=== PATIENT | female | born 1960 | race African-American/Black ===

== ENCOUNTER 2017-03-08 22:21 | Emergency (ER) | payer MEDICAID ==
[~2017-03-08] VITALS: Ht 162.6 cm; Wt 180.0 kg
[2017-03-09 02:45] VITALS: BP 158/76
== END 2017-03-09 04:30 | disposition home or self-care (01) ==
LOC: ER 22:34
DX: E11.649 Type 2 diabetes mellitus with hypoglycemia without coma (principal); I10 Essential (primary) hypertension; R53.1 Weakness; Z79.4 Long term (current) use of insulin
CPT/HCPCS: 36415; 82947; 82962; 99284; Z7610

== ENCOUNTER 2020-08-08 20:11 | Emergency (ER) | payer MEDICAID ==
[~2020-08-08] VITALS: Ht 167.6 cm; Wt 69.0 kg
[2020-08-09] MEDS ORDERED: TOPUD MT (01:25)
[2020-08-09 03:27] VITALS: BP 135/90
== END 2020-08-09 03:33 ==
LOC: ER 20:11
DX: Z04.3 Encounter for examination and observation following other accident (principal); E11.9 Type 2 diabetes mellitus without complications; I10 Essential (primary) hypertension; D64.9 Anemia, unspecified; W18.2XXA Fall in (into) shower or empty bathtub, initial encounter; Y93.89 Activity, other specified; Y92.9 Unspecified place or not applicable
CPT/HCPCS: 72100; 72131; 72170; 93005; 99285

== ENCOUNTER 2021-03-06 13:51 | Inpatient (IN) | payer MEDICAID ==
[~2021-03-06] VITALS: Ht 167.6 cm; Wt 55.3 kg
[~2021-03-06 13:51] MED LIST: TOPUD MT
[2021-03-06] MEDS ORDERED: IOHEXOL-350 100 ML BOTTLE ONE (15:08)
[2021-03-06 15:39] LABS: HEMATOCRIT. 26.1 % (36.0-48.0); HEMOGLOBIN. 8.6 g/dL (12.0-16.0); MEAN CORPUSCULAR VOLUME 85.1 fL (81.0-99.0); MEAN PLATELET VOLUME 8.6 fl (7.4-10.4); PLATELET 307 x1000/uL (130-400); RED BLOOD CELL COUNT 3.07 mill/uL (4.2-5.4); RED CELL DISTRIBUTION WIDTH 13.9 % (11.6-14.6)
[2021-03-06 15:45] LABS: CHLORIDE 112 mEq/L (98-107)
[2021-03-06 15:49] LABS: ETHANOL BLOOD < 10 mg/dL; INR 0.9; PROTHROMBIN TIME 10.2 sec (9.6-11.0)
[2021-03-06] MEDS ORDERED: ONDANSETRON HCL 4MG/2ML INJ IV PRN (16:45)
[2021-03-06] MEDS ORDERED: ACETAMINOPHEN 650MG SUPP PR PRN (16:45)
[2021-03-06] MEDS ORDERED: TRAMADOL 50MG TABLET PO PRN (16:45)
[2021-03-06] MEDS ORDERED: DEXTROSE 50% WATER 50ML SYRINGE IV PRN (16:45)
[2021-03-06] MEDS ORDERED: NALOXONE HCL 0.4MG/ML VIAL IV PRN (17:00)
[2021-03-06] MEDS ORDERED: LABETALOL HCL VIAL 20 MG/4 ML VIAL IV PRN (17:00)
[2021-03-06] MEDS: BLOOD SUGAR DIAGNOSTIC STRIP TEST SCH ×2 (17:06→22:35)
[2021-03-06 17:44] LABS: FOLIC ACID (FOLATE) SERUM > 20.00 ng/mL (>5.38)
[2021-03-06 17:49] LABS: VITAMIN B12 SERUM 327 pg/mL (211-911)
[2021-03-06 21:04] LABS: PLATELET ESTIMATE NORMAL
[2021-03-06] MEDS: INSULIN LISPRO 100 UNITS/ML SUBCUT SCH ×2 (22:36→22:52)
[2021-03-06] MEDS: ATORVASTATIN CALCIUM 40MG TABLET PO SCH (22:52)
[2021-03-07] MEDS ORDERED: CLONIDINE 0.1MG TABLET PO NR (04:15)
[2021-03-07] MEDS: BLOOD SUGAR DIAGNOSTIC STRIP TEST SCH ×4 (06:30→20:58)
[2021-03-07] MEDS: INSULIN LISPRO 100 UNITS/ML SUBCUT SCH ×4 (07:15→20:58)
[2021-03-07] MEDS: ASPIRIN 81MG EC TABLET PO SCH (09:41)
[2021-03-07 11:16] VITALS: BP 159/89
[2021-03-07 12:00] VITALS: BP 159/63
[2021-03-07 14:19] LABS: BASOPHILS % 0.8 % (0.0-2.0); EOSINOPHILS % 1.8 % (0.0-5.0); HEMATOCRIT. 23.5 % (36.0-48.0); HEMOGLOBIN. 7.8 g/dL (12.0-16.0); LYMPHOCYTES % 19.3 % (20.0-50.0); MEAN CORPUSCULAR HEMOGLOBIN 28.4 pg (28.0-32.0); MEAN CORPUSCULAR VOLUME 85.4 fL (81.0-99.0); MEAN PLATELET VOLUME 9.6 fl (7.4-10.4); MONOCYTES % 6.7 % (2.0-8.0); NEUTROPHILS % 71.4 % (40.0-76.0); PLATELET 267 x1000/uL (130-400); RED BLOOD CELL COUNT 2.76 mill/uL (4.2-5.4); RED CELL DISTRIBUTION WIDTH 13.6 % (11.6-14.6)
[2021-03-07 16:00] VITALS: BP 157/57
[2021-03-07] MEDS ORDERED: GLIP10TA10 PO (18:44)
[2021-03-07] MEDS ORDERED: LISI10TA26 PO (18:44)
[2021-03-07] MEDS ORDERED: METF-873 PO (18:44)
[2021-03-07] MEDS ORDERED: AMLO10TA80 PO (18:44)
[2021-03-07] MEDS ORDERED: FOLI0.4T6 MT (18:44)
[2021-03-07] MEDS ORDERED: POTASSIUM CHLORIDE 20MEQ TABLET SR PO NR (19:30)
[2021-03-07 20:00] VITALS: BP 141/65
[2021-03-07] MEDS: ATORVASTATIN CALCIUM 40MG TABLET PO SCH (20:58)
[2021-03-08 04:00] VITALS: BP 172/64
[2021-03-08] MEDS: BLOOD SUGAR DIAGNOSTIC STRIP TEST SCH ×4 (06:19→21:00)
[2021-03-08] MEDS: INSULIN LISPRO 100 UNITS/ML SUBCUT SCH ×4 (06:20→21:00)
[2021-03-08 08:00] VITALS: BP 180/66
[2021-03-08] MEDS: CYANOCOBALAMIN 1000MCG/ML VIAL IM SCH (09:00)
[2021-03-08] MEDS: ASPIRIN 81MG EC TABLET PO SCH (09:00)
[2021-03-08 09:39] LABS: *AMPHETAMINES SCREEN URINE NEGATIVE (NEGATIVE); *BARBITURATES SCREEN URINE NEGATIVE (NEGATIVE); *BENZODIAZEPINES SCREEN URINE NEGATIVE (NEGATIVE); *COCAINE SCREEN URINE NEGATIVE (NEGATIVE); CANNABINOID URINE SCREEN NEGATIVE (NEGATIVE); OPIATES URINE SCREEN NEGATIVE (NEGATIVE)
[2021-03-08 09:40] LABS: METHADONE URINE SCREEN NEGATIVE (NEGATIVE); PHENCYCLIDINE URINE SCREEN NEGATIVE (NEGATIVE)
[2021-03-08] MEDS ORDERED: CLONIDINE 0.1MG TABLET PO NR (09:45)
[2021-03-08] MEDS: AMLODIPINE 10MG TABLET PO SCH (10:45)
[2021-03-08 11:23] LABS: BASOPHILS % 0.5 % (0.0-2.0); EOSINOPHILS % 2.7 % (0.0-5.0); HEMATOCRIT. 23.1 % (36.0-48.0); HEMOGLOBIN. 7.8 g/dL (12.0-16.0); LYMPHOCYTES % 28.7 % (20.0-50.0); MEAN CORPUSCULAR HEMOGLOBIN 28.6 pg (28.0-32.0); MEAN CORPUSCULAR VOLUME 85.2 fL (81.0-99.0); MEAN PLATELET VOLUME 10.1 fl (7.4-10.4); MONOCYTES % 6.9 % (2.0-8.0); NEUTROPHILS % 61.2 % (40.0-76.0); PLATELET 259 x1000/uL (130-400); RED BLOOD CELL COUNT 2.71 mill/uL (4.2-5.4); RED CELL DISTRIBUTION WIDTH 13.9 % (11.6-14.6)
[2021-03-08 12:00] VITALS: BP 180/66
[2021-03-08] MEDS: CLONIDINE 0.1MG TABLET PO PRN (15:14)
[2021-03-08 15:37] VITALS: BP 193/81
[2021-03-08 20:00] VITALS: BP 186/75
[2021-03-08] MEDS ORDERED: EPOETIN ALFA-EPBX 10,000 UNIT/ML VIAL SUBCUT NR (21:00)
[2021-03-08] MEDS: ATORVASTATIN CALCIUM 40MG TABLET PO SCH (22:56)
[2021-03-08] MEDS: HYDRALAZINE HCL 10MG TABLET PO SCH (23:10)
[2021-03-09] VITALS: BP 202/81
[2021-03-09] MEDS: CLONIDINE 0.1MG TABLET PO PRN ×2 (01:22→21:11)
[2021-03-09 04:00] VITALS: BP_SYST 142; BP_SYST 190; BP_DIAS 81; BP_DIAS 91
[2021-03-09] MEDS: BLOOD SUGAR DIAGNOSTIC STRIP TEST SCH ×4 (07:14→22:11)
[2021-03-09] MEDS: INSULIN LISPRO 100 UNITS/ML SUBCUT SCH ×4 (07:15→22:11)
[2021-03-09] MEDS: HYDRALAZINE HCL 10MG TABLET PO SCH ×2 (07:15→13:05)
[2021-03-09 07:22] LABS: BASOPHILS % 0.5 % (0.0-2.0); EOSINOPHILS % 2.7 % (0.0-5.0); HEMOGLOBIN. 7.7 g/dL (12.0-16.0); LYMPHOCYTES % 28.4 % (20.0-50.0); MEAN CORPUSCULAR HEMOGLOBIN 28.6 pg (28.0-32.0); MEAN CORPUSCULAR VOLUME 85.8 fL (81.0-99.0); MEAN PLATELET VOLUME 9.3 fl (7.4-10.4); MONOCYTES % 7.4 % (2.0-8.0); PLATELET 231 x1000/uL (130-400); RED BLOOD CELL COUNT 2.68 mill/uL (4.2-5.4); RED CELL DISTRIBUTION WIDTH 13.7 % (11.6-14.6)
[2021-03-09 08:00] VITALS: BP 175/75
[2021-03-09 08:07] LABS: PHOSPHORUS 3.9 mg/dL (2.5-4.9)
[2021-03-09] MEDS: CYANOCOBALAMIN 1000MCG/ML VIAL IM SCH (09:16)
[2021-03-09] MEDS: AMLODIPINE 10MG TABLET PO SCH (09:16)
[2021-03-09] MEDS: ASPIRIN 81MG EC TABLET PO SCH (09:16)
[2021-03-09 12:00] VITALS: BP 149/72
[2021-03-09] MEDS: SODIUM CHLORIDE 0.45% 1,000 ML IV SCH (14:36)
[2021-03-09 16:00] VITALS: BP 145/69
[2021-03-09 20:00] VITALS: BP 180/59
[2021-03-09] MEDS: ATORVASTATIN CALCIUM 40MG TABLET PO SCH (21:10)
[2021-03-09] MEDS: HYDRALAZINE HCL 25MG TABLET PO SCH (22:15)
[2021-03-10] VITALS: BP 160/50
[2021-03-10 04:00] VITALS: BP 190/69
[2021-03-10] MEDS: CLONIDINE 0.1MG TABLET PO PRN ×2 (04:31→17:50)
[2021-03-10] MEDS: HYDRALAZINE HCL 25MG TABLET PO SCH (06:35)
[2021-03-10] MEDS: BLOOD SUGAR DIAGNOSTIC STRIP TEST SCH ×4 (06:45→21:00)
[2021-03-10] MEDS: INSULIN LISPRO 100 UNITS/ML SUBCUT SCH ×4 (07:15→21:00)
[2021-03-10 08:00] VITALS: BP 161/62
[2021-03-10 08:47] LABS: CLARITY URINE CLEAR (CLEAR); COLOR URINE YELLOW (YELLOW); KETONES URINE NEGATIVE (NEGATIVE); LEUKOCYTE ESTERASE URINE TRACE (NEGATIVE); NITRITE URINE NEGATIVE (NEGATIVE); OCCULT BLOOD URINE TRACE (NEGATIVE); PH URINE 6.5 (4.5-8.0); PROTEIN URINE 3+ (NEGATIVE); SPECIFIC GRAVITY URINE 1.017 (1.005-1.030); UROBILINOGEN URINE 0.2 E.U./dL (0.2-1.0)
[2021-03-10] MEDS: CYANOCOBALAMIN 1000MCG/ML VIAL IM SCH (09:39)
[2021-03-10] MEDS: NIFEDIPINE XL 30MG TAB PO SCH ×2 (09:39→20:22)
[2021-03-10] MEDS: ASPIRIN 81MG EC TABLET PO SCH (09:40)
[2021-03-10 12:00] VITALS: BP 148/71
[2021-03-10] MEDS: HYDRALAZINE HCL 50MG TABLET PO SCH ×2 (13:45→22:16)
[2021-03-10 16:00] VITALS: BP 182/65
[2021-03-10 16:22] LABS: BASOPHILS % 0.5 % (0.0-2.0); EOSINOPHILS % 3.4 % (0.0-5.0); HEMATOCRIT. 24.6 % (36.0-48.0); LYMPHOCYTES % 22.7 % (20.0-50.0); MEAN CORPUSCULAR HEMOGLOBIN 27.8 pg (28.0-32.0); MEAN PLATELET VOLUME 9.5 fl (7.4-10.4); MONOCYTES % 5.1 % (2.0-8.0); NEUTROPHILS % 68.3 % (40.0-76.0); PLATELET 228 x1000/uL (130-400); RED BLOOD CELL COUNT 2.89 mill/uL (4.2-5.4); RED CELL DISTRIBUTION WIDTH 13.5 % (11.6-14.6)
[2021-03-10 16:37] LABS: PHOSPHORUS 3.8 mg/dL (2.5-4.9)
[2021-03-10] MEDS: SODIUM CHLORIDE 0.45% 1,000 ML IV SCH (17:04)
[2021-03-10 20:00] VITALS: BP 171/67
[2021-03-10] MEDS: ATORVASTATIN CALCIUM 40MG TABLET PO SCH (20:21)
[2021-03-11] VITALS: BP 177/66
[2021-03-11] MEDS: CLONIDINE 0.1MG TABLET PO PRN ×2 (01:54→18:15)
[2021-03-11 04:00] VITALS: BP 160/57
[2021-03-11] MEDS: HYDRALAZINE HCL 50MG TABLET PO SCH (06:05)
[2021-03-11] MEDS: BLOOD SUGAR DIAGNOSTIC STRIP TEST SCH ×4 (06:05→21:43)
[2021-03-11] MEDS: INSULIN LISPRO 100 UNITS/ML SUBCUT SCH ×4 (06:08→21:00)
[2021-03-11] MEDS: SODIUM CHLORIDE 0.45% 1,000 ML IV SCH (06:12)
[2021-03-11 06:24] LABS: BASOPHILS % 0.5 % (0.0-2.0); EOSINOPHILS % 3.6 % (0.0-5.0); HEMATOCRIT. 24.4 % (36.0-48.0); HEMOGLOBIN. 8.2 g/dL (12.0-16.0); LYMPHOCYTES % 30.9 % (20.0-50.0); MEAN CORPUSCULAR HEMOGLOBIN 28.8 pg (28.0-32.0); MEAN CORPUSCULAR VOLUME 85.7 fL (81.0-99.0); MEAN PLATELET VOLUME 9.7 fl (7.4-10.4); MONOCYTES % 6.3 % (2.0-8.0); NEUTROPHILS % 58.7 % (40.0-76.0); PLATELET 228 x1000/uL (130-400); RED BLOOD CELL COUNT 2.84 mill/uL (4.2-5.4); RED CELL DISTRIBUTION WIDTH 13.5 % (11.6-14.6)
[2021-03-11 06:42] LABS: PHOSPHORUS 3.6 mg/dL (2.5-4.9)
[2021-03-11 07:53] VITALS: BP 161/57
[2021-03-11] MEDS: NIFEDIPINE XL 30MG TAB PO SCH ×2 (09:00→21:19)
[2021-03-11] MEDS: CYANOCOBALAMIN 1000MCG/ML VIAL IM SCH (09:09)
[2021-03-11] MEDS: ASPIRIN 81MG EC TABLET PO SCH (09:10)
[2021-03-11 12:00] VITALS: BP 163/68
[2021-03-11] MEDS: HYDRALAZINE HCL 100MG TABLET PO SCH ×2 (13:49→21:18)
[2021-03-11 16:00] VITALS: BP 184/65
[2021-03-11 20:00] VITALS: BP 179/65
[2021-03-11] MEDS ORDERED: POTASSIUM CHLORIDE 10MEQ TABLET SR PO NR (20:00)
[2021-03-11] MEDS ORDERED: TRAZODONE HCL 50MG TABLET PO PRN (20:00)
[2021-03-11] MEDS: ATORVASTATIN CALCIUM 40MG TABLET PO SCH (21:18)
[2021-03-12] VITALS: BP 168/72
[2021-03-12 04:00] VITALS: BP 165/60
[2021-03-12] MEDS: BLOOD SUGAR DIAGNOSTIC STRIP TEST SCH ×4 (05:47→21:31)
[2021-03-12] MEDS: INSULIN LISPRO 100 UNITS/ML SUBCUT SCH ×4 (05:47→21:34)
[2021-03-12] MEDS: HYDRALAZINE HCL 100MG TABLET PO SCH ×3 (05:47→21:28)
[2021-03-12 07:14] LABS: BASOPHILS % 0.4 % (0.0-2.0); EOSINOPHILS % 3.1 % (0.0-5.0); HEMATOCRIT. 24.1 % (36.0-48.0); MEAN CORPUSCULAR HEMOGLOBIN 28.3 pg (28.0-32.0); MEAN CORPUSCULAR VOLUME 85.1 fL (81.0-99.0); MEAN PLATELET VOLUME 9.5 fl (7.4-10.4); MONOCYTES % 6.9 % (2.0-8.0); NEUTROPHILS % 61.6 % (40.0-76.0); PLATELET 245 x1000/uL (130-400); RED BLOOD CELL COUNT 2.84 mill/uL (4.2-5.4); RED CELL DISTRIBUTION WIDTH 13.6 % (11.6-14.6)
[2021-03-12 08:00] VITALS: BP 117/63
[2021-03-12 09:09] LABS: PHOSPHORUS 3.9 mg/dL (2.5-4.9)
[2021-03-12] MEDS ORDERED: NIFEDIPINE XL 60MG TAB PO SCH (10:00)
[2021-03-12] MEDS ORDERED: POTASSIUM CHLORIDE 20MEQ TABLET SR PO NR (10:15)
[2021-03-12] MEDS: CYANOCOBALAMIN 1000MCG/ML VIAL IM SCH (10:30)
[2021-03-12] MEDS: ASPIRIN 81MG EC TABLET PO SCH (10:30)
[2021-03-12 12:00] VITALS: BP 173/64
[2021-03-12 16:00] VITALS: BP 167/58
[2021-03-12 20:00] VITALS: BP 145/56
[2021-03-12] MEDS: ATORVASTATIN CALCIUM 40MG TABLET PO SCH (21:28)
[2021-03-13] VITALS: BP 144/77
[2021-03-13 04:00] VITALS: BP 132/78
[2021-03-13] MEDS: HYDRALAZINE HCL 100MG TABLET PO SCH ×3 (06:31→19:52)
[2021-03-13] MEDS: BLOOD SUGAR DIAGNOSTIC STRIP TEST SCH ×4 (06:31→21:41)
[2021-03-13] MEDS: INSULIN LISPRO 100 UNITS/ML SUBCUT SCH ×4 (06:34→21:00)
[2021-03-13 07:12] LABS: BASOPHILS % 0.3 % (0.0-2.0); EOSINOPHILS % 2.5 % (0.0-5.0); HEMATOCRIT. 24.1 % (36.0-48.0); LYMPHOCYTES % 26.8 % (20.0-50.0); MEAN CORPUSCULAR HEMOGLOBIN 28.3 pg (28.0-32.0); MEAN CORPUSCULAR VOLUME 84.8 fL (81.0-99.0); MEAN PLATELET VOLUME 9.1 fl (7.4-10.4); MONOCYTES % 5.9 % (2.0-8.0); NEUTROPHILS % 64.5 % (40.0-76.0); PLATELET 268 x1000/uL (130-400); RED BLOOD CELL COUNT 2.84 mill/uL (4.2-5.4); RED CELL DISTRIBUTION WIDTH 13.7 % (11.6-14.6)
[2021-03-13 08:05] VITALS: BP 175/64
[2021-03-13] MEDS ORDERED: POTASSIUM CHLORIDE 20MEQ TABLET SR PO NR (08:30)
[2021-03-13] MEDS: NIFEDIPINE XL 60MG TAB PO SCH ×3 (08:58→19:52)
[2021-03-13] MEDS: ASPIRIN 81MG EC TABLET PO SCH (08:58)
[2021-03-13] MEDS: CYANOCOBALAMIN 1000MCG/ML VIAL IM SCH (08:58)
[2021-03-13] MEDS ORDERED: NIFEDIPINE XL 60MG TAB PO SCH (09:00)
[2021-03-13 12:00] VITALS: BP 161/56
[2021-03-13] MEDS ORDERED: CYANOCOBALAMIN 1000MCG/ML VIAL IM SCH (14:30)
[2021-03-13 16:02] VITALS: BP 144/63
[2021-03-13] MEDS: ATORVASTATIN CALCIUM 40MG TABLET PO SCH (19:51)
[2021-03-13 20:00] VITALS: BP 145/69
[2021-03-14] VITALS: BP 130/70
[2021-03-14 04:00] VITALS: BP 133/88
[2021-03-14] MEDS: HYDRALAZINE HCL 100MG TABLET PO SCH ×3 (05:47→20:34)
[2021-03-14] MEDS: BLOOD SUGAR DIAGNOSTIC STRIP TEST SCH ×4 (05:49→20:35)
[2021-03-14 06:43] LABS: BASOPHILS % 0.5 % (0.0-2.0); EOSINOPHILS % 2.6 % (0.0-5.0); HEMATOCRIT. 25.1 % (36.0-48.0); HEMOGLOBIN. 8.4 g/dL (12.0-16.0); LYMPHOCYTES % 21.7 % (20.0-50.0); MEAN CORPUSCULAR HEMOGLOBIN 28.5 pg (28.0-32.0); MEAN PLATELET VOLUME 9.1 fl (7.4-10.4); MONOCYTES % 6.1 % (2.0-8.0); NEUTROPHILS % 69.1 % (40.0-76.0); PLATELET 281 x1000/uL (130-400); RED BLOOD CELL COUNT 2.95 mill/uL (4.2-5.4)
[2021-03-14] MEDS: INSULIN LISPRO 100 UNITS/ML SUBCUT SCH ×4 (07:15→22:19)
[2021-03-14] MEDS: ASPIRIN 81MG EC TABLET PO SCH (09:29)
[2021-03-14] MEDS: CYANOCOBALAMIN 1000MCG/ML VIAL IM SCH (09:29)
[2021-03-14] MEDS: DOCUSATE SODIUM 100MG CAPSULE PO PRN (09:30)
[2021-03-14] MEDS: NIFEDIPINE XL 60MG TAB PO SCH ×3 (09:30→20:34)
[2021-03-14 20:00] VITALS: BP 142/55
[2021-03-14] MEDS: ATORVASTATIN CALCIUM 40MG TABLET PO SCH (20:34)
[2021-03-14] MEDS ORDERED: EPOETIN ALFA 10000UNITS/ML VIAL SUBCUT ONE (21:00)
[2021-03-15] VITALS: BP 128/47
[2021-03-15 04:00] VITALS: BP 122/87
[2021-03-15] MEDS: INSULIN LISPRO 100 UNITS/ML SUBCUT SCH ×4 (05:35→21:00)
[2021-03-15] MEDS: HYDRALAZINE HCL 100MG TABLET PO SCH ×3 (05:35→21:16)
[2021-03-15] MEDS: BLOOD SUGAR DIAGNOSTIC STRIP TEST SCH ×4 (06:45→21:17)
[2021-03-15 07:48] LABS: BASOPHILS % 0.4 % (0.0-2.0); EOSINOPHILS % 2.7 % (0.0-5.0); HEMATOCRIT. 22.5 % (36.0-48.0); HEMOGLOBIN. 7.5 g/dL (12.0-16.0); MEAN CORPUSCULAR HEMOGLOBIN 28.3 pg (28.0-32.0); MEAN CORPUSCULAR VOLUME 84.9 fL (81.0-99.0); MEAN PLATELET VOLUME 8.9 fl (7.4-10.4); MONOCYTES % 6.6 % (2.0-8.0); NEUTROPHILS % 69.3 % (40.0-76.0); PLATELET 265 x1000/uL (130-400); RED BLOOD CELL COUNT 2.65 mill/uL (4.2-5.4)
[2021-03-15 08:00] VITALS: BP 120/85
[2021-03-15 08:00] LABS: PHOSPHORUS 4.6 mg/dL (2.5-4.9)
[2021-03-15] MEDS: ASPIRIN 81MG EC TABLET PO SCH (09:00)
[2021-03-15] MEDS: NIFEDIPINE XL 60MG TAB PO SCH ×3 (09:00→21:17)
[2021-03-15] MEDS ORDERED: POTASSIUM CHLORIDE INJ 30 MEQ in DEXTROSE 5% WATER 1,000 ML IV NR (12:30)
[2021-03-15 20:00] VITALS: BP 123/77
[2021-03-15] MEDS: ATORVASTATIN CALCIUM 40MG TABLET PO SCH (21:16)
[2021-03-16] VITALS: BP 148/87
[2021-03-16] MEDS ORDERED: MAGNESIUM CITRATE 300ML SOLUTION PO NR (01:00)
[2021-03-16 04:00] VITALS: BP 133/88
[2021-03-16] MEDS: BLOOD SUGAR DIAGNOSTIC STRIP TEST SCH ×4 (06:38→21:00)
[2021-03-16] MEDS: HYDRALAZINE HCL 100MG TABLET PO SCH ×3 (06:38→22:44)
[2021-03-16 07:07] LABS: BASOPHILS % 0.6 % (0.0-2.0); HEMATOCRIT. 24.7 % (36.0-48.0); HEMOGLOBIN. 8.3 g/dL (12.0-16.0); LYMPHOCYTES % 25.3 % (20.0-50.0); MEAN CORPUSCULAR HEMOGLOBIN 28.4 pg (28.0-32.0); MEAN CORPUSCULAR VOLUME 84.7 fL (81.0-99.0); MEAN PLATELET VOLUME 9.2 fl (7.4-10.4); MONOCYTES % 7.3 % (2.0-8.0); NEUTROPHILS % 62.8 % (40.0-76.0); PLATELET 294 x1000/uL (130-400); RED BLOOD CELL COUNT 2.91 mill/uL (4.2-5.4); RED CELL DISTRIBUTION WIDTH 14.2 % (11.6-14.6)
[2021-03-16] MEDS: INSULIN LISPRO 100 UNITS/ML SUBCUT SCH ×4 (07:15→21:00)
[2021-03-16 08:00] VITALS: BP 145/67
[2021-03-16] MEDS: ASPIRIN 81MG EC TABLET PO SCH (10:31)
[2021-03-16] MEDS: NIFEDIPINE XL 60MG TAB PO SCH ×3 (10:31→22:44)
[2021-03-16] MEDS: POTASSIUM CHLORIDE 20MEQ TABLET SR PO SCH (10:31)
[2021-03-16 12:00] VITALS: BP 133/73
[2021-03-16 16:00] VITALS: BP 135/60
[2021-03-16 20:00] VITALS: BP 130/78
[2021-03-16] MEDS: ATORVASTATIN CALCIUM 40MG TABLET PO SCH (22:44)
[2021-03-17] VITALS: BP 136/74
[2021-03-17 04:00] VITALS: BP 130/70
[2021-03-17] MEDS: HYDRALAZINE HCL 100MG TABLET PO SCH ×3 (05:12→20:38)
[2021-03-17] MEDS: BLOOD SUGAR DIAGNOSTIC STRIP TEST SCH ×4 (05:20→20:39)
[2021-03-17] MEDS: INSULIN LISPRO 100 UNITS/ML SUBCUT SCH ×4 (07:15→20:38)
[2021-03-17] MEDS: ASPIRIN 81MG EC TABLET PO SCH (08:36)
[2021-03-17] MEDS: POTASSIUM CHLORIDE 20MEQ TABLET SR PO SCH (08:36)
[2021-03-17] MEDS: DOCUSATE SODIUM 100MG CAPSULE PO PRN (08:37)
[2021-03-17] MEDS: NIFEDIPINE XL 60MG TAB PO SCH ×3 (08:37→20:38)
[2021-03-17 20:00] VITALS: BP 132/77
[2021-03-17] MEDS: ATORVASTATIN CALCIUM 40MG TABLET PO SCH (20:38)
[2021-03-18] VITALS (7 sets, daily range): BP systolic 130–154; BP diastolic 63–90
[2021-03-18] MEDS: HYDRALAZINE HCL 100MG TABLET PO SCH ×2 (06:00→15:26)
[2021-03-18] MEDS: INSULIN LISPRO 100 UNITS/ML SUBCUT SCH ×3 (06:34→17:15)
[2021-03-18] MEDS: BLOOD SUGAR DIAGNOSTIC STRIP TEST SCH ×3 (06:34→16:45)
[2021-03-18 07:26] LABS: BASOPHILS % 0.5 % (0.0-2.0); EOSINOPHILS % 2.8 % (0.0-5.0); HEMATOCRIT. 26.7 % (36.0-48.0); HEMOGLOBIN. 8.7 g/dL (12.0-16.0); LYMPHOCYTES % 24.2 % (20.0-50.0); MEAN CORPUSCULAR HEMOGLOBIN 27.6 pg (28.0-32.0); MEAN CORPUSCULAR VOLUME 85.1 fL (81.0-99.0); MEAN PLATELET VOLUME 8.8 fl (7.4-10.4); NEUTROPHILS % 65.5 % (40.0-76.0); PLATELET 343 x1000/uL (130-400); RED BLOOD CELL COUNT 3.14 mill/uL (4.2-5.4); RED CELL DISTRIBUTION WIDTH 14.3 % (11.6-14.6)
[2021-03-18 07:31] LABS: PHOSPHORUS 3.7 mg/dL (2.5-4.9)
[2021-03-18] MEDS: POTASSIUM CHLORIDE 20MEQ TABLET SR PO SCH (10:23)
[2021-03-18] MEDS: ASPIRIN 81MG EC TABLET PO SCH (10:23)
[2021-03-18] MEDS: NIFEDIPINE XL 60MG TAB PO SCH ×2 (10:24→15:26)
[2021-03-21] MEDS ORDERED: CYANOCOBALAMIN 1000MCG/ML VIAL IM SCH (09:00)
== END 2021-03-18 20:40 | DRG 199 ==
LOC: ER 13:51 → MICUSO 16:48 → EDBEDREQ 17:03 → EDBEDREQSVC 17:05 → 5WST 03-07 03:52
PROVIDERS: ADMIT Internal Medicine; ATTEND Internal Medicine
DX: I16.0 Hypertensive urgency (principal); G93.41 Metabolic encephalopathy; N17.9 Acute kidney failure, unspecified; E11.649 Type 2 diabetes mellitus with hypoglycemia without coma; E87.0 Hyperosmolality and hypernatremia; R47.01 Aphasia; D64.9 Anemia, unspecified; E11.22 Type 2 diabetes mellitus with diabetic chronic kidney disease; I12.0 Hypertensive chronic kidney disease with stage 5 chronic kidney disease or end stage renal disease; E53.8 Deficiency of other specified B group vitamins; R26.9 Unspecified abnormalities of gait and mobility; N18.5 Chronic kidney disease, stage 5; E87.6 Hypokalemia; R47.1 Dysarthria and anarthria; R53.81 Other malaise; F17.200 Nicotine dependence, unspecified, uncomplicated; R29.700 NIHSS score 0; R13.10 Dysphagia, unspecified; Z82.49 Family history of ischemic heart disease and other diseases of the circulatory system; Z83.3 Family history of diabetes mellitus; Z86.73 Personal history of transient ischemic attack (TIA), and cerebral infarction without residual deficits; Z56.0 Unemployment, unspecified; I65.22 Occlusion and stenosis of left carotid artery; E11.65 Type 2 diabetes mellitus with hyperglycemia
CPT/HCPCS: 36415; 70496; 70498; 70551; 71045; 76770; 80048; 80053; 80061; 80305; 80320; 81003; 82550; 82607; 82746; 82962; 83036; 83735; 84100; 84443; 84484; 85025; 87426; 92610; 93005; 93306; 97110; 97161; 97164; 97166; 97530; 97535; 99285; C1893; J0885; J1815; J3420; J3480; J3490; J7070; Q9967; G0480

== ENCOUNTER 2021-03-27 08:58 | Inpatient (IN) | payer MEDICAID ==
[~2021-03-27] VITALS: Ht 182.9 cm; Wt 94.8 kg
[~2021-03-27 08:58] MED LIST changes: +AMLO10TA80 PO; +ASPI-1406 MT; +FOLI0.4T6 MT
[2021-03-27] MEDS ORDERED: DEXTROSE 50% WATER 50ML SYRINGE IV ONE (09:45)
[2021-03-27 09:54] LABS: BASOPHILS % 0.3 % (0.0-2.0); EOSINOPHILS % 0.6 % (0.0-5.0); HEMATOCRIT. 24.9 % (36.0-48.0); HEMOGLOBIN. 8.4 g/dL (12.0-16.0); LYMPHOCYTES % 14.5 % (20.0-50.0); MEAN CORPUSCULAR HEMOGLOBIN 28.6 pg (28.0-32.0); MEAN CORPUSCULAR VOLUME 84.9 fL (81.0-99.0); MEAN PLATELET VOLUME 8.4 fl (7.4-10.4); MONOCYTES % 5.3 % (2.0-8.0); NEUTROPHILS % 79.3 % (40.0-76.0); PLATELET 355 x1000/uL (130-400); RED BLOOD CELL COUNT 2.93 mill/uL (4.2-5.4); RED CELL DISTRIBUTION WIDTH 13.9 % (11.6-14.6)
[2021-03-27 10:02] LABS: CHLORIDE 110 mEq/L (98-107)
[2021-03-27] MEDS ORDERED: AMLODIPINE 10MG TABLET PO NR (17:45)
[2021-03-27] MEDS: DEXT 5%/0.45% NACL 1000ML 1,000 ML IV NR ×2 (18:12→21:56)
[2021-03-27 19:30] VITALS: BP_SYST 175; BP_SYST 184; BP_DIAS 74; BP_DIAS 86
[2021-03-27] MEDS: CLONIDINE 0.1MG TABLET PO PRN (21:47)
[2021-03-27] MEDS ORDERED: ONDANSETRON HCL 4MG/2ML INJ IV PRN (22:15)
[2021-03-27] MEDS ORDERED: ACETAMINOPHEN 325MG TABLET PO PRN (22:15)
[2021-03-27] MEDS ORDERED: ENOXAPARIN 40MG/0.4ML SYR SUBCUT SCH (22:15)
[2021-03-27] MEDS ORDERED: ENOXAPARIN 30MG/0.3ML SYR SUBCUT SCH (22:30)
[2021-03-28] VITALS: BP 147/73
[2021-03-28] MEDS ORDERED: DEXTROSE 50% WATER 50ML SYRINGE IV PRN (02:00)
[2021-03-28 04:00] VITALS: BP 125/65
[2021-03-28] MEDS: BLOOD SUGAR DIAGNOSTIC STRIP TEST SCH ×3 (06:37→17:38)
[2021-03-28 08:00] VITALS: BP 170/72
[2021-03-28 08:37] LABS: BASOPHILS % 0.5 % (0.0-2.0); EOSINOPHILS % 3.5 % (0.0-5.0); HEMATOCRIT. 23.3 % (36.0-48.0); HEMOGLOBIN. 7.7 g/dL (12.0-16.0); MEAN CORPUSCULAR VOLUME 84.3 fL (81.0-99.0); MEAN PLATELET VOLUME 8.6 fl (7.4-10.4); MONOCYTES % 6.8 % (2.0-8.0); NEUTROPHILS % 56.2 % (40.0-76.0); PLATELET 313 x1000/uL (130-400); RED BLOOD CELL COUNT 2.76 mill/uL (4.2-5.4); RED CELL DISTRIBUTION WIDTH 14.4 % (11.6-14.6)
[2021-03-28 09:29] LABS: CHLORIDE 113 mEq/L (98-107)
[2021-03-28 09:38] LABS: HDL CHOLESTEROL 88 mg/dL (40-59); LDL CHOLESTEROL 47 mg/dL (5-100)
[2021-03-28] MEDS: CLONIDINE 0.1MG TABLET PO PRN ×2 (09:59→17:38)
[2021-03-28 12:00] VITALS: BP 148/75
[2021-03-28 16:00] VITALS: BP 175/80
[2021-03-28 16:19] VITALS: BP 148/75
== END 2021-03-28 19:10 | DRG 52 ==
LOC: ER 08:58 → 8WST 11:08 → EDBEDREQ 11:12 → EDBEDREQTM 11:12 → ENRESERV 17:40
PROVIDERS: ADMIT Family Medicine; ATTEND Family Medicine
DX: G93.41 Metabolic encephalopathy (principal); E11.649 Type 2 diabetes mellitus with hypoglycemia without coma; E11.22 Type 2 diabetes mellitus with diabetic chronic kidney disease; D64.9 Anemia, unspecified; F41.9 Anxiety disorder, unspecified; F32.A Depression, unspecified; I12.9 Hypertensive chronic kidney disease with stage 1 through stage 4 chronic kidney disease, or unspecified chronic kidney disease; N18.9 Chronic kidney disease, unspecified; Z20.822 Contact with and (suspected) exposure to COVID-19
CPT/HCPCS: 36415; 71045; 80053; 80061; 82962; 83036; 84484; 85025; 87426; 93005; 99285; J1650; J7042

== ENCOUNTER 2023-10-09 09:47 | Emergency (ER) | payer MEDICARE, MEDICAID ==
[~2023-10-09] VITALS: Ht 175.3 cm; Wt 59.0 kg
[~2023-10-09 09:47] MED LIST changes: +CLON0.2T PO; +FOLI-43 MT; -FOLI0.4T6 MT; +LISI10TA26 PO; +METF-873 PO
[2023-10-09 09:50] VITALS: O2SAT 100
[2023-10-09] MEDS ORDERED: MUPI22OI2 TP (12:51)
[2023-10-09 14:26] VITALS: BP 167/76; PULSE 100; RESP 20; TEMP 98.2
[2023-10-09] MEDS ORDERED: SEVE0.8P3 (23:14)
[2023-10-09] MEDS ORDERED: HYDR50TA39 PO (23:14)
== END 2023-10-09 14:50 ==
LOC: ER 09:47
DX: S91.301A Unspecified open wound, right foot, initial encounter (principal); F17.200 Nicotine dependence, unspecified, uncomplicated; I10 Essential (primary) hypertension; E11.9 Type 2 diabetes mellitus without complications; F41.9 Anxiety disorder, unspecified; F32.A Depression, unspecified; Z79.899 Other long term (current) drug therapy; X58.XXXA Exposure to other specified factors, initial encounter; Y93.89 Activity, other specified; Y92.89 Other specified places as the place of occurrence of the external cause; Y99.8 Other external cause status
CPT/HCPCS: 73620; 99283

== ENCOUNTER 2024-10-01 18:11 | Inpatient (IN) | payer MEDICARE, MEDICAID ==
[~2024-10-01] VITALS: Ht 162.6 cm; Wt 64.0 kg
[~2024-10-01 18:11] MED LIST changes: +HYDR50TA39 PO; +METF-1149 PO; -METF-873 PO; +MUPI22OI2 TP; +SEVE0.8P3
[2024-10-01 18:19] VITALS: O2SAT 97
[2024-10-01 20:13] LABS: BASOPHILS % 0.5 % (0.0-2.0); EOSINOPHILS % 1.7 % (0.0-5.0); HEMATOCRIT. 29.8 % (36.0-48.0); HEMOGLOBIN. 9.6 g/dL (12.0-16.0); LYMPHOCYTES % 14.0 % (20.0-50.0); MEAN PLATELET VOLUME 7.9 fl (7.4-10.4); MONOCYTES % 5.3 % (2.0-8.0); NEUTROPHILS % 78.5 % (40.0-76.0); PLATELET 184 x1000/uL (130-400); RED BLOOD CELL COUNT 3.12 mill/uL (4.2-5.4); RED CELL DISTRIBUTION WIDTH 18.0 % (11.6-14.6)
[2024-10-01 20:24] LABS: UREA NITROGEN BLOOD 54 mg/dL (9-23)
[2024-10-01 20:25] LABS: ASPARTATE AMINOTRANSFERASE 11 IU/L (<34)
[2024-10-01] MEDS: ONDANSETRON HCL 4MG/2ML INJ IV ONE (20:25)
[2024-10-01] MEDS: PANTOPRAZOLE 80 MG in SODIUM CHLORIDE 0.9% 100 ML IV ONE (20:25)
[2024-10-01 20:26] LABS: BILIRUBIN DIRECT < 0.1 mg/dL (<=3.0); BILIRUBIN TOTAL < 0.2 mg/dL (0.1-1.0); CREATININE 3.9 mg/dL (0.6-1.0); PROTEIN TOTAL 6.3 g/dL (6.0-8.3)
[2024-10-01 20:42] LABS: INR 1.0
[2024-10-01 21:19] VITALS: BP 101/46; PULSE 103; RESP 18; TEMP 35.9; O2SAT 99
[2024-10-01] MEDS ORDERED: ACETAMINOPHEN 325MG TABLET PO PRN ×2 (22:15)
[2024-10-01] MEDS ORDERED: DOCUSATE SODIUM 100MG CAPSULE PO PRN (22:15)
[2024-10-01] MEDS ORDERED: ONDANSETRON HCL 4MG/2ML INJ IV PRN (22:15)
[2024-10-01] MEDS ORDERED: IPRATROPIUM/ALBUTEROL 0.5-3(2.5)MG/3ML NEB HHN PRN (22:15)
[2024-10-01 22:22] VITALS: BP 101/46; PULSE 103; RESP 67; TEMP 35.9732
[2024-10-01] MEDS ORDERED: DEXTROSE 50% WATER 50ML SYRINGE IV PRN (23:00)
[2024-10-01] MEDS: SODIUM ZIRCONIUM CYCLOSILICATE 10GM/PACKET PO NR (23:38)
[2024-10-02] VITALS: BP 110/58; PULSE 76; RESP 17; TEMP 35.9; O2SAT 98
[2024-10-02 04:00] VITALS: BP 105/50; PULSE 90; RESP 17; TEMP 36.5; O2SAT 100
[2024-10-02] MEDS: BLOOD SUGAR DIAGNOSTIC STRIP TEST SCH (05:47)
[2024-10-02] MEDS: INSULIN LISPRO 100 UNITS/ML SUBCUT SCH (05:47)
[2024-10-02 06:51] LABS: BASOPHILS % 0.6 % (0.0-2.0); EOSINOPHILS % 2.7 % (0.0-5.0); HEMATOCRIT. 30.2 % (36.0-48.0); HEMOGLOBIN. 9.4 g/dL (12.0-16.0); LYMPHOCYTES % 20.3 % (20.0-50.0); MEAN PLATELET VOLUME 7.8 fl (7.4-10.4); MONOCYTES % 7.3 % (2.0-8.0); NEUTROPHILS % 69.1 % (40.0-76.0); PLATELET 180 x1000/uL (130-400); RED BLOOD CELL COUNT 3.07 mill/uL (4.2-5.4); RED CELL DISTRIBUTION WIDTH 18.4 % (11.6-14.6)
[2024-10-02 07:11] LABS: CREATININE 4.6 mg/dL (0.6-1.0); UREA NITROGEN BLOOD 63 mg/dL (9-23)
[2024-10-02 07:12] LABS: LACTATE DEHYDROGENASE 200 IU/L (120-246)
[2024-10-02 08:00] VITALS: BP 113/51; PULSE 97; RESP 18; TEMP 36.7; O2SAT 100
[2024-10-02] MEDS ORDERED: PANTOPRAZOLE SODIUM 40 MG/VIAL IV SCH (09:00)
[2024-10-02] MEDS: DEXT 5%/0.9% NACL 1,000 ML IV SCH (10:20)
[2024-10-02 10:27] LABS: PHOSPHORUS 3.4 mg/dL (2.5-4.9)
[2024-10-02 12:00] VITALS: BP 109/48; PULSE 100; RESP 18; TEMP 36.6; O2SAT 100
[2024-10-02] MEDS: PANTOPRAZOLE SODIUM 40 MG/VIAL IV SCH (13:45)
[2024-10-02] MEDS ORDERED: SODIUM CHLORIDE 0.9% 250 ML IV NR (14:45)
[2024-10-02 16:00] VITALS: BP 120/52; PULSE 75; RESP 18; TEMP 36.6; O2SAT 100
[2024-10-02 17:17] LABS: FOLIC ACID (FOLATE) SERUM > 20.00 ng/mL (>5.38)
[2024-10-02 17:18] LABS: VITAMIN B12 SERUM 515 pg/mL (211-911)
[2024-10-02 19:41] LABS: COLOR URINE YELLOW (YELLOW); GLUCOSE URINE NEGATIVE (NEGATIVE); KETONES URINE NEGATIVE (NEGATIVE); LEUKOCYTE ESTERASE URINE NEGATIVE (NEGATIVE); NITRITE URINE NEGATIVE (NEGATIVE); OCCULT BLOOD URINE 2+ (NEGATIVE); PH URINE 5.0 (4.5-8.0); PROTEIN URINE 1+ (NEGATIVE); SPECIFIC GRAVITY URINE 1.016 (1.005-1.030); UROBILINOGEN URINE 0.2 E.U./dL (0.2-1.0)
[2024-10-02 20:00] VITALS: BP 130/55; PULSE 79; RESP 17; TEMP 36.4; O2SAT 100
[2024-10-02 20:03] LABS: CLARITY URINE SL HAZY (CLEAR)
[2024-10-02 20:05] LABS: WBC URINE 0-2 /hpf (0-2)
[2024-10-02 20:06] LABS: RBC URINE 0-2 /hpf (0-2)
[2024-10-02 20:07] LABS: BACTERIA URINE TRACE; SQUAMOUS EPITHELIAL CELL URINE 1+ /lpf (RARE/1+)
[2024-10-02 20:09] LABS: MUCUS URINE 1+ /lpf (< = 2+)
[2024-10-02 20:19] LABS: *AMPHETAMINES SCREEN URINE NEGATIVE (NEGATIVE); *BARBITURATES SCREEN URINE NEGATIVE (NEGATIVE); *BENZODIAZEPINES SCREEN URINE NEGATIVE (NEGATIVE); *COCAINE SCREEN URINE NEGATIVE (NEGATIVE); CANNABINOID URINE SCREEN NEGATIVE (NEGATIVE); ECSTASY MDMA SCREEN URINE NEGATIVE (NEGATIVE); METHADONE URINE SCREEN NEGATIVE (NEGATIVE); OPIATES URINE SCREEN NEGATIVE (NEGATIVE); PHENCYCLIDINE URINE SCREEN NEGATIVE (NEGATIVE)
[2024-10-03] VITALS: BP 124/58; PULSE 80; RESP 17; TEMP 36.4; O2SAT 100
[2024-10-03 04:00] VITALS: BP 114/47; PULSE 95; RESP 16; TEMP 36.4; O2SAT 100
[2024-10-03 07:50] LABS: UREA NITROGEN BLOOD 85 mg/dL (9-23)
[2024-10-03 07:51] LABS: ASPARTATE AMINOTRANSFERASE 12 IU/L (<34)
[2024-10-03 07:52] LABS: BILIRUBIN TOTAL < 0.2 mg/dL (0.1-1.0); PROTEIN TOTAL 6.1 g/dL (6.0-8.3)
[2024-10-03 07:53] LABS: CREATININE 6.3 mg/dL (0.6-1.0)
[2024-10-03 08:04] LABS: BASOPHILS % 0.7 % (0.0-2.0); EOSINOPHILS % 6.6 % (0.0-5.0); HEMATOCRIT. 25.7 % (36.0-48.0); HEMOGLOBIN. 8.2 g/dL (12.0-16.0); LYMPHOCYTES % 25.1 % (20.0-50.0); MEAN PLATELET VOLUME 8.1 fl (7.4-10.4); MONOCYTES % 5.7 % (2.0-8.0); NEUTROPHILS % 61.9 % (40.0-76.0); PLATELET 178 x1000/uL (130-400); RED BLOOD CELL COUNT 2.71 mill/uL (4.2-5.4); RED CELL DISTRIBUTION WIDTH 18.1 % (11.6-14.6)
[2024-10-03] MEDS ORDERED: PANTOPRAZOLE SODIUM 40 MG/VIAL IV SCH (09:00)
[2024-10-03] MEDS: SUCRALFATE 1G TABLET PO SCH (14:02)
[2024-10-03] MEDS: FERROUS SULFATE 300MG/5ML UDC PO SCH (14:02)
[2024-10-03] MEDS ORDERED: PROT40 MT (15:32)
[2024-10-03] MEDS ORDERED: FE300LUD MT (15:54)
[2024-10-03 20:00] VITALS: BP 121/57; PULSE 90; RESP 18; TEMP 36.4; O2SAT 99
[2024-10-03 20:34] LABS: HEPATITIS A AB IGM NEGATIVE (Negative)
[2024-10-03 20:35] LABS: HEPATITIS B CORE AB IGM NEGATIVE (Negative); HEPATITIS C AB NON REACTIVE (Neg) (Negative)
[2024-10-04] VITALS (15 sets, daily range): BP systolic 102–140; BP diastolic 47–69; PULSE 72–94; RESP 16–18; TEMP 35.9–36.6; O2SAT 18–100
[2024-10-04] MEDS ORDERED: EPOETIN ALFA-EPBX 4,000 UNITS/ML VIAL SUBCUT SCH (21:00)
== END 2024-10-04 19:49 | DRG 377 ==
LOC: ER 18:11 → EDBEDREQTM 21:01 → EDBEDREQ 21:01 → ENRESERV 21:06 → 5WST 21:13 → 6EST 10-04 06:24
PROVIDERS: ADMIT Hospitalist; ATTEND Hospitalist
PROC: 5A1D70Z Performance of Urinary Filtration, Intermittent, Less than 6 Hours Per Day (ICD-10-PCS; principal; 2024-10-04)
DX: K92.2 Gastrointestinal hemorrhage, unspecified (principal); N18.6 End stage renal disease; I12.0 Hypertensive chronic kidney disease with stage 5 chronic kidney disease or end stage renal disease; E11.22 Type 2 diabetes mellitus with diabetic chronic kidney disease; D63.1 Anemia in chronic kidney disease; E87.5 Hyperkalemia; F32.A Depression, unspecified; F41.9 Anxiety disorder, unspecified; E83.41 Hypermagnesemia; F17.210 Nicotine dependence, cigarettes, uncomplicated; Z99.2 Dependence on renal dialysis; Z79.82 Long term (current) use of aspirin; Z79.84 Long term (current) use of oral hypoglycemic drugs; Z99.3 Dependence on wheelchair; Z86.73 Personal history of transient ischemic attack (TIA), and cerebral infarction without residual deficits
CPT/HCPCS: 36415; 71045; 80048; 80053; 80076; 80305; 81003; 82607; 82728; 82746; 82962; 83036; 83540; 83550; 83605; 83615; 83735; 83880; 84100; 84145; 85014; 85018; 85025; 85044; 86705; 86709; 86850; 86900; 87340; 90935; 93005; 93970; 99285; J0885; J1815; J2405; J2470; J7050